=== PATIENT | female | born 1990 | race Caucasian/White ===

== ENCOUNTER 2021-04-26 10:17 | Emergency (ER) | payer OTHER ==
[2021-04-26 11:26] LABS: HEMOGLOBIN 13.1 gm/dl (12.3-15.3); RED BLOOD COUNT 4.38 M/UL (4.00-5.10); WHITE BLOOD COUNT 9.2 K/UL (4.5-11.0)
[2021-04-26 11:51] LABS: BUN/CREATININE RATIO 13 (0-10)
[2021-04-26] MEDS ORDERED: MACROBID 100 M100 MG PO (13:36)
[2021-04-26] MEDS ORDERED: IBUPROFEN800 MG PO (13:36)
== END 2021-04-26 13:46 | disposition home or self-care (01) ==
LOC: ER1 10:17
PROVIDERS: Physician Assistant
DX: N93.9 Abnormal uterine and vaginal bleeding, unspecified (principal); R30.0 Dysuria; F17.200 Nicotine dependence, unspecified, uncomplicated; Z88.0 Allergy status to penicillin; Z88.1 Allergy status to other antibiotic agents
CPT/HCPCS: 80053; 81001; 84703; 85025; 87086; 99284